=== PATIENT | female | born 1945 | race Caucasian/White ===

== ENCOUNTER 2019-12-08 11:46 | Outpatient (CLI) | payer MEDICARE, SELFPAY ==
[2019-12-08 12:47] LABS: Hemoglobin A1C 5.3 % (<5.7)
[2019-12-08 12:50] LABS: Alanine Aminotransferase 24 U/L (4-35); Albumin Level 4.2 g/dL (3.5-5.1); Alkaline Phosphatase 65 U/L (38-126); Anion Gap 5 mmol/L (8-16); Aspartate Amino Transferase 35 U/L (14-36); Bilirubin,Total 0.7 mg/dL (0.2-1.3); Blood Urea Nitrogen 25 mg/dL (7-17); Calcium 9.7 mg/dL (8.4-10.2); Carbon Dioxide 28 mmol/L (22-30); Chloride 107 mmol/L (98-107); Cholesterol 208 mg/dL (0-200); Estimated Glomerular Filt Rate > 60; Glucose 85 mg/dL (65-105); HDL Direct 52 mg/dL; Potassium 4.2 mmol/L (3.4-5.0); Sodium 140 mmol/L (137-145); Triglycerides 143 mg/dL (<150)
[2019-12-08 13:01] LABS: LDL Cholesterol Direct 121 mg/dL
[2019-12-08 14:04] LABS: Vitamin D 25 Hydroxy 43.7 ng/mL
== END 2019-12-08 11:47 | disposition home or self-care (01) ==
PROVIDERS: PCP Family Medicine; Visit Provider Family Medicine
DX: E78.5 Hyperlipidemia, unspecified (principal); Z79.899 Other long term (current) drug therapy; R73.9 Hyperglycemia, unspecified; E55.9 Vitamin D deficiency, unspecified
CPT/HCPCS: 36415; 80048; 80061; 80076; 82306; 83036

== ENCOUNTER 2020-11-29 11:08 | Outpatient (CLI) | payer MEDICARE, SELFPAY ==
[2020-11-29 12:27] LABS: Alanine Aminotransferase 22 U/L (4-35); Albumin Level 4.7 g/dL (3.5-5.1); Alkaline Phosphatase 68 U/L (38-126); Anion Gap 9 mmol/L (8-16); Aspartate Amino Transferase 36 U/L (14-36); Blood Urea Nitrogen 23 mg/dL (7-17); Calcium 9.7 mg/dL (8.4-10.2); Carbon Dioxide 27 mmol/L (22-30); Chloride 105 mmol/L (98-107); Cholesterol 245 mg/dL (0-200); Estimated Glomerular Filt Rate > 60; Glucose 90 mg/dL (65-110); HDL Direct 58 mg/dL; Potassium 4.4 mmol/L (3.4-5.0); Sodium 141 mmol/L (137-145); Triglycerides 113 mg/dL (<150)
[2020-11-29 12:39] LABS: LDL Cholesterol Direct 131 mg/dL
[2020-11-29 12:53] LABS: Hemoglobin A1C 5.3 % (<5.7)
[2020-11-29 14:26] LABS: Vitamin D 25 Hydroxy 53.6 ng/mL
== END 2020-11-29 11:09 | disposition home or self-care (01) ==
PROVIDERS: PCP Family Medicine; Visit Provider Family Medicine
DX: E78.5 Hyperlipidemia, unspecified (principal); Z79.899 Other long term (current) drug therapy; R73.9 Hyperglycemia, unspecified; E55.9 Vitamin D deficiency, unspecified
CPT/HCPCS: 36415; 80048; 80061; 80076; 82306; 83036

== ENCOUNTER 2021-01-07 14:38 | Outpatient (CLI) | payer MEDICARE, SELFPAY ==
--- NOTE | ~2021-01-07 | DEXA_ITS ---
Bone Density Report Name: Luli Peguero Age: 75 Sex: Female Ethnicity: White Date of : 1945 Indication: osteopenia; monitoring treatment; height loss; prior fracture; postmenopausal Referring Provider: CHALINO, ROSALINDA Salas Study: Bone densitometry was performed. Exam Date: January 07, 2021 Accession number: [id number] Bone Density: Region BMD T-score Z-score Classification AP Spine (L1-L4) 0.883 -1.5 1.0 Osteopenia Femoral Neck (Left) 0.560 -2.6 -0.4 Osteoporosis Total Hip (Left) 0.693 -2.0 -0.1 Osteopenia Total Hip Bilateral Avg 0.721 -1.8 0.1 Osteopenia Femoral Neck (Right) 0.681 -1.5 0.7 Osteopenia Total Hip (Right) 0.748 -1.6 0.3 Osteopenia World Health Organization criteria for BMD impression classify patients as: Normal (T-score at or above -1.0), Osteopenia (T-score between -1.0 and -2.5), or Osteoporosis (T-score at or below -2.5). 10-year Fracture Risk: FRAX not reported because: Some T-score for Spine Total or Hip Total or Femoral Neck at or below -2.5 Treated for osteoporosis Previous Exams: Region Exam Age BMD T-score BMD Change BMD Change Date g/cm2 vs Baseline vs Previous AP Spine(L1-L4) 01/07/2021 75 0.883 -1.5 0.051(6.1%)# 0.088(11.0%)* 12/27/2018 73 0.796 -2.3 -0.037(-4.4%)# 0.005(0.6%) 04/17/2015 69 0.791 -2.3 -0.042(-5.0%)# -0.031(-3.8%)# 08/30/2012 66 0.821 -2.1 -0.011(-1.3%)# -0.044(-5.1%)# 01/18/2006 60 0.866 -1.6 0.033(4.0%)* 0.033(4.0%)* 09/04/2003 57 0.832 -2.0 Total Hip(Left) 01/07/2021 75 0.693 -2.0 -0.075(-9.8%)# -0.031(-4.3%)* 12/27/2018 73 0.724 -1.8 -0.044(-5.8%)# 0.015(2.1%) 04/17/2015 69 0.710 -1.9 -0.059(-7.7%)# -0.036(-4.8%)# 08/30/2012 66 0.746 -1.6 -0.023(-3.0%)# -0.018(-2.4%)# 01/18/2006 60 0.764 -1.5 -0.005(-0.6%) -0.005(-0.6%) 09/04/2003 57 0.769 -1.4 Total Hip(Right) 01/07/2021 75 0.748 -1.6 -0.059(-7.3%)# -0.009(-1.2%) 12/27/2018 73 0.757 -1.5 -0.049(-6.1%)# -0.053(-6.5%)* 04/17/2015 69 0.810 -1.1 0.004(0.5%)# -0.050(-5.8%)# 08/30/2012 66 0.860 -0.7 0.054(6.6%)# 0.047(5.7%)# 01/18/2006 60 0.813 -1.1 0.007(0.9%) 0.007(0.9%) 09/04/2003 57 0.806 -1.1 *Denotes significance at 95% confidence level, LSC for AP Spine = 0.022 g/cm2, LSC for Total Hip = 0.027 g/cm2 Clinical Information Provided by Patient: Has had a low trauma fracture Is being treated for osteoporosis Has used the following medications: Fosamax (i.e. alendronat
--- NOTE | ~2021-01-07 | MM_ITS ---
EXAMINATION: MM screening ritesh BI w juan manuel HISTORY: Screening mammogram TECHNIQUE: Craniocaudal and mediolateral oblique 3-D tomosynthesis images were obtained and synthetic 2-D images were generated. CAD analysis was submitted and interpreted. COMPARISON: 12/27/2018, 12/20/2017, 12/02/2016 bilateral digital screening mammogram examinations BREAST PARENCHYMAL COMPOSITION: There are scattered areas of fibroglandular density. FINDINGS: Stable approximately 3.4 mm circumscribed opacity in the upper outer right breast, likely a benign intramammary lymph node. There is no evidence of suspicious mass, calcification, or exchange architect ural distortion to suggest malignancy in either breast. There has been no suspicious interval change. IMPRESSION: 1. No mammographic evidence of malignancy. 2. Recommend routine screening mammography in one year. BI-RADS Category 2: Benign finding(s). Reviewed, dictated and finalized at location A.
== END 2021-01-07 14:39 | disposition home or self-care (01) ==
LOC: ANHIMG 14:39
PROVIDERS: PCP Family Medicine; Visit Provider Family Medicine
DX: Z12.31 Encounter for screening mammogram for malignant neoplasm of breast (principal); Z78.0 Asymptomatic menopausal state; M85.88 Other specified disorders of bone density and structure, other site; M85.852 Other specified disorders of bone density and structure, left thigh; M85.851 Other specified disorders of bone density and structure, right thigh
CPT/HCPCS: 77063; 77067; 77080

== ENCOUNTER 2021-05-05 09:59 | Outpatient (CLI) | payer MEDICARE, SELFPAY ==
[2021-05-05 11:00] LABS: Alanine Aminotransferase 20 U/L (4-35); Albumin Level 4.6 g/dL (3.5-5.1); Alkaline Phosphatase 70 U/L (38-126); Anion Gap 6 mmol/L (8-16); Aspartate Amino Transferase 31 U/L (14-36); Blood Urea Nitrogen 34 mg/dL (7-17); Calcium 9.3 mg/dL (8.4-10.2); Carbon Dioxide 27 mmol/L (22-30); Chloride 108 mmol/L (98-107); Cholesterol 240 mg/dL (0-200); Estimated Glomerular Filt Rate > 60; Glucose 93 mg/dL (65-110); HDL Direct 55 mg/dL; LDL Cholesterol Direct 141 mg/dL; Potassium 4.2 mmol/L (3.4-5.0); Sodium 141 mmol/L (137-145); Triglycerides 76 mg/dL (<150)
[2021-05-05 11:14] LABS: Vitamin D 25 Hydroxy 53.7 ng/mL
[2021-05-05 11:34] LABS: Hemoglobin A1C 5.3 % (<5.7)
== END 2021-05-05 10:00 | disposition home or self-care (01) ==
PROVIDERS: PCP Family Medicine; Visit Provider Family Medicine
DX: Z51.81 Encounter for therapeutic drug level monitoring (principal); Z79.899 Other long term (current) drug therapy; R73.9 Hyperglycemia, unspecified; E55.9 Vitamin D deficiency, unspecified
CPT/HCPCS: 36415; 80048; 80061; 80076; 82306; 83036

== ENCOUNTER 2021-05-21 11:21 | Outpatient (CLI) | payer MEDICARE, SELFPAY ==
--- NOTE | ~2021-05-21 | US_ITS ---
EXAMINATION: US soft tissue head and neck EXAM DATE: 05/21/2021 12:27 INDICATION: Localized enlarged lymph nodes . Left-sided neck feels different than right. TECHNIQUE: Multiple grayscale and Doppler images of the neck symptomatic region were obtained (by a t echnologist who performed the scan) and subsequently reviewed. There is no prior study for compariso n. FINDINGS: Scanning in the area of patient's concern demonstrates several small internal jugular chain lymph nod es bilaterally. No pathologically enlarged lymph nodes. No other sonographic abnormality. IMPRESSION: 1. Unremarkable ultrasound exam. Reviewed, dictated and finalized at location A. FISHER
== END 2021-05-21 11:22 | disposition home or self-care (01) ==
LOC: ANHIMG 11:25
PROVIDERS: PCP Family Medicine; Visit Provider Family Medicine
DX: R59.0 Localized enlarged lymph nodes (principal)
CPT/HCPCS: 76536

== ENCOUNTER 2021-10-02 11:49 | Outpatient (CLI) | payer MEDICARE, SELFPAY ==
--- NOTE | ~2021-10-02 | XR_ITS ---
XR foot LT min 3V DATE: 10/02/2021 12:14 INDICATION: Left foot pain. Dorsal distal metatarsal pain. TECHNIQUE: 4 views COMPARISON: 11/24/2017 left foot FINDINGS: Mild plantar and slight posterior calcaneal enthesopathy. Mild osteoarthritis at the first metatarsophalangeal joint. There is osteoarthritic change at the tar sometatarsal and some interphalangeal joints. No fracture, dislocation, periosteal reaction or bone destruction is detected. IMPRESSION: Polyarticular osteoarthritis Mild plantar and slight posterior calcaneal enthesopathy Reviewed, dictated and finalized at location B.
--- NOTE | ~2021-10-02 | XR_ITS ---
XR ankle LT min 3V DATE: 10/02/2021 12:13 INDICATION: Left ankle and foot pain TECHNIQUE: 4 views of left ankle COMPARISON: None FINDINGS: Mild plantar and slight posterior calcaneal enthesopathy without associated erosive change or periostitis. No fracture or dislocation of the ankle or disruption of the ankle mortise. No periosteal reaction or bone destruction. IMPRESSION: No significant abnormality of the left ankle Slight posterior and mild plantar calcaneal enthesopathy Reviewed, dictated and finalized at location B.
== END 2021-10-02 11:50 | disposition home or self-care (01) ==
PROVIDERS: PCP Family Medicine; Visit Provider Family Medicine
DX: M79.672 Pain in left foot (principal); M19.072 Primary osteoarthritis, left ankle and foot; M77.32 Calcaneal spur, left foot
CPT/HCPCS: 73610; 73630

== ENCOUNTER 2022-01-21 09:45 | Outpatient (CLI) | payer MEDICARE, SELFPAY ==
--- NOTE | ~2022-01-21 | MM_ITS ---
EXAMINATION: MM screening ritesh BI w juan manuel HISTORY: Screening mammogram TECHNIQUE: Craniocaudal and mediolateral oblique 3-D tomosynthesis images were obtained and synthetic 2-D images were generated. CAD analysis was submitted and interpreted. COMPARISON: 01/07/2021, 12/27/2018, 12/20/2017 bilateral screening mammogram examinations BREAST PARENCHYMAL COMPOSITION: There are scattered areas of fibroglandular density. FINDINGS: Stable 3 mm probable intramammary lymph node, upper outer right breast. There is no evidenc e of suspicious mass, calcification, or architectural distortion to suggest malignancy in either [address]. There has been no suspicious interval change. IMPRESSION: 1. No mammographic evidence of malignancy. 2. Recommend routine screening mammography in one year. BI-RADS Category 2: Benign finding(s). Reviewed, dictated and finalized at location A. 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
== END 2022-01-21 09:46 | disposition home or self-care (01) ==
PROVIDERS: PCP Family Medicine; Visit Provider Family Medicine
DX: Z12.31 Encounter for screening mammogram for malignant neoplasm of breast (principal)
CPT/HCPCS: 77063; 77067

== ENCOUNTER 2022-06-08 13:12 | Outpatient (CLI) | payer MEDICARE, SELFPAY ==
[2022-06-08 13:53] LABS: Basophils Absolute Auto 0.1 K/mm3 (0.0-0.1); Basophils Percent Auto 1.2 % (0.2-1.2); Eosinophils Absolute Auto 0.2 K/mm3 (0-0.3); Eosinophils Percent Auto 2.6 % (0-4.4); Hematocrit 35.6 % (37.0-47.0); Hemoglobin 11.8 g/dL (12.0-15.0); Immature Granulocyte Absolute 0.02 K/mm3 (0.00-0.031); Immature Granulocyte Percent A 0.3 % (0-0.5); Lymphocytes Absolute Auto 1.68 K/mm3 (0.9-3.2); Lymphocytes Percent Auto 25.5 % (18.3-44.2); Mean Corpuscular HGB Conc 33.1 g/dl (32-36); Mean Corpuscular Hemoglobin 31.1 pg (26-34); Mean Corpuscular Volume 93.9 fl (80-100); Mean Platelet Volume 10.2 fl (7.4-10.4); Monocytes Absolute Auto 0.4 K/mm3 (0.1-0.6); Monocytes Percent Auto 6.7 % (2.6-8.5); Neutrophils Absolute Auto 4.2 K/mm3 (1.3-6.7); Neutrophils Percent Auto 63.7 % (45.5-73.1); Platelet Count Result 254 k/mm3 (150-375); Red Blood Count 3.79 M/mm3 (4.2-5.4); Red Cell Distribution Width 13.2 % (11.5-14.5); White Blood Count 6.6 K/mm3 (4.5-10.0)
[2022-06-08 14:08] LABS: Alanine Aminotransferase 21 U/L (6-35); Albumin Level 4.5 g/dL (3.5-5.1); Alkaline Phosphatase 66 U/L (38-126); Anion Gap 1 mmol/L (8-16); Aspartate Amino Transferase 32 U/L (14-36); Bilirubin,Total 0.9 mg/dL (0.2-1.3); Blood Urea Nitrogen 20 mg/dL (7-17); Calcium 9.4 mg/dL (8.4-10.2); Carbon Dioxide 32 mmol/L (22-30); Chloride 105 mmol/L (98-107); Cholesterol 219 mg/dL (0-200); Estimated Glomerular Filt Rate > 60; Glucose 87 mg/dL (65-110); HDL Direct 56 mg/dL; Potassium 3.9 mmol/L (3.4-5.0); Sodium 138 mmol/L (137-145); Triglycerides 121 mg/dL (<150)
[2022-06-08 14:14] LABS: Hemoglobin A1C 5.2 % (<5.7)
[2022-06-08 14:19] LABS: LDL Cholesterol Direct 116 mg/dL
[2022-06-08 14:44] LABS: Vitamin D 25 Hydroxy 39.1 ng/mL
== END 2022-06-08 13:13 | disposition home or self-care (01) ==
PROVIDERS: PCP Family Medicine; Visit Provider Family Medicine
DX: E55.9 Vitamin D deficiency, unspecified (principal); E78.5 Hyperlipidemia, unspecified; Z79.899 Other long term (current) drug therapy; R73.9 Hyperglycemia, unspecified
CPT/HCPCS: 36415; 80048; 80061; 80076; 82306; 83036; 85025

== ENCOUNTER 2023-08-05 07:55 | Outpatient (CLI) | payer MEDICARE, SELFPAY ==
--- NOTE | ~2023-08-05 | DEXA_ITS ---
Bone Density Report Name: EDWARD MCGOWAN Age: 77 Sex: Female Ethnicity: White Date of : 1945 Indication: osteopenia; height loss; Referring Provider: CHALINO, ROSALINDA Salas Study: Bone densitometry was performed. Exam Date: August 05, 2023 Accession number: [id number] Bone Density: Region BMD T-score Z-score Classification AP Spine(L1-L4) 0.855 -1.7 0.9 Osteopenia Femoral Neck (Left) 0.613 -2.1 0.2 Osteopenia Total Hip (Left) 0.752 -1.6 0.5 Osteopenia Femoral Neck (Right) 0.650 -1.8 0.5 Osteopenia Total Hip (Right) 0.795 -1.2 0.8 Osteopenia Total Hip Mean 0.774 -1.4 0.7 Osteopenia World Health Organization criteria for BMD impression classify patients as: Normal (T-score at or above -1.0), Osteopenia (T-score between -1.0 and -2.5), or Osteoporosis (T-score at or below -2.5). 10-year Fracture Risk(1): Major Osteoporotic Fracture 15% Hip Fracture 4.4% Reported Risk Factors: [place] (), Neck BMD=0.613, BMI=22.4 (1) FRAX(R) Version 3.08. Fracture probability calculated for an untreated patient. Fracture probability may be lower if the patient has received treatment. Previous Exams: Region Exam Age BMD T-score BMD Change BMD Change Date g/cm2 vs Baseline vs Previous AP Spine (L1-L4) 08/05/2023 77 0.855 -1.7 0.034 (4.1%)# -0.028 (-3.2%) 01/07/2021 75 0.883 -1.5 0.062 (7.5%)# 0.088 (11.0%)* 12/27/2018 73 0.796 -2.3 -0.026 (-3.1%) 0.005 (0.6%) 04/17/2015 69 0.791 -2.3 -0.031 (-3.8%) -0.031 (-3.8%) 08/30/2012 66 0.821 -2.1 Total Hip(Left) 08/05/2023 77 0.752 -1.6 0.007 (0.9%)# 0.059 (8.5%)* 01/07/2021 75 0.693 -2.0 -0.052 (-7.0%) -0.031 (-4.3%) 12/27/2018 73 0.724 -1.8 -0.021 (-2.8%) 0.015 (2.1%) 04/17/2015 69 0.710 -1.9 -0.036 (-4.8%) -0.036 (-4.8%) 08/30/2012 66 0.746 -1.6 Total Hip(Right) 08/05/2023 77 0.795 -1.2 -0.065 (-7.5%) 0.048 (6.4%)* 01/07/2021 75 0.748 -1.6 -0.112 (-13.1% -0.009 (-1.2%) 12/27/2018 73 0.757 -1.5 -0.103 (-12.0% -0.053 (-6.5%) 04/17/2015 69 0.810 -1.1 -0.050 (-5.8%) -0.050 (-5.8%) 08/30/2012 66 0.860 -0.7 *Denotes significance at 95% confidence level, LSC for AP Spine = 0.022 g/cm2, LSC for Total Hip = 0.027 g/cm2 # Denotes dissimilar scan types or analysis methods Clinical Information Provided by Patient: Has used the following medications: Fosamax (i.e. alendronate), Vitamin D, Calcium Patient maximum height was 62.5 Drinks caffeinated beverages Onset of menses at age 9 Number of children 1
--- NOTE | ~2023-08-05 | MM_ITS ---
EXAMINATION: MM screening ritesh BI w juan manuel HISTORY: Screening TECHNIQUE: Craniocaudal and mediolateral oblique 3-D tomosynthesis images were obtained and synthetic 2-D images were generated. CAD analysis was submitted and interpreted. COMPARISON: Comparison to multiple prior studies sequentially, with oldest reviewed study dated 11/27. BREAST PARENCHYMAL COMPOSITION: Not dense: There are scattered areas of fibroglandular density. FINDINGS: There is no evidence of suspicious mass, calcification, or architectural distortion to sugg est malignancy in either breast. There has been no suspicious interval change. IMPRESSION: 1. No mammographic evidence of malignancy. 2. Recommend routine screening mammography in one year. BI-RADS Category 1: Negative Reviewed, dictated and finalized at location A.
== END 2023-08-05 07:56 | disposition home or self-care (01) ==
PROVIDERS: PCP Family Medicine; Visit Provider Family Medicine
DX: Z12.31 Encounter for screening mammogram for malignant neoplasm of breast (principal); M85.89 Other specified disorders of bone density and structure, multiple sites; Z78.0 Asymptomatic menopausal state
CPT/HCPCS: 77063; 77067; 77080

== ENCOUNTER 2024-02-05 12:19 | Outpatient (CLI) | payer MEDICARE, SELFPAY ==
--- NOTE | ~2024-02-05 | CT_ITS ---
EXAMINATION: CT shoulder LT wo con DATE: 02/05/2024 13:07 INDICATION: Left shoulder pain. TECHNIQUE: Computed tomography (CT) of the left shoulder was performed without intravenous contrast. Automated exposure control and iterative reconstruction technique were employed. The dose-length prod uct was 75.10 mGy-cm. COMPARISON: None FINDINGS: Bone alignment is normal. No fracture. There is moderate osteoarthritis of glenohumeral lissette nt and acromioclavicular joint. There is no asymmetric fatty atrophy of the rotator cuff muscle phan es. IMPRESSION: 1. Polyarticular osteoarthritis. Reviewed, dictated and finalized at location A. ET MARKER
== END 2024-02-05 12:20 | disposition home or self-care (01) ==
PROVIDERS: PCP Family Medicine; Visit Provider Orthopaedic Surgery Hand Surgery
DX: M19.012 Primary osteoarthritis, left shoulder (principal)
CPT/HCPCS: 73200

== ENCOUNTER 2025-03-14 09:58 | Outpatient (CLI) | payer MEDICARE, SELFPAY ==
--- NOTE | ~2025-03-14 | XR_ITS ---
EXAMINATION: XR hand RT min 3V DATE: 03/14/2025 10:25 INDICATION: Right hand pain TECHNIQUE: Posteroanterior, oblique and lateral views of the right hand were obtained. COMPARISON: None. FINDINGS: Likely first carpal metacarpal suspension arthroplasty with resection of the trapezium. Bone alignment is otherwise normal. No fracture. Severe osteoarthritis at the second, third and fifth distal interphalangeal joints with central erosions at the base of the distal phalanges with gullwing configuration consistent with erosive osteoarthritis. Additional moderate osteoarthritis at the remaining interphalangeal joints and the second-fifth digits and at the third metacarpophalangeal joint. Mild osteoarthritis at the remaining joints in the right hand. Diffuse osteopenia. Soft tissues are unremarkable. IMPRESSION: 1. 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 2. First carpal metacarpal suspension arthroplasty with resection of the trapezium. Reviewed, dictated and finalized at location A. 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 2. First carpal metacarpal suspension arthroplasty with resection of the trapez ium.
--- NOTE | ~2025-03-14 | XR_ITS ---
EXAMINATION: XR shoulder RT min 2V, XR shoulder LT min 2V DATE: 03/14/2025 10:25 INDICATION: Bilateral shoulder pain TECHNIQUE: 1. AP internally and externally rotated, AP oblique externally rotated and axillary views of the right shoulder were obtained. 2. AP internally and externally rotated, AP oblique externally rotated and axillary views of the left shoulder were obtained. COMPARISON: 03/22/2018 FINDINGS: Right shoulder: Normal alignment. No fracture.Interval progression of now severe joint space narrowing at the right glenohumeral joint. Mild osteoarthritis at the acromioclavicular joint. Visualized portion of the lungs are clear. Soft tissues are unremarkable. Left shoulder: Alignment is normal. No fracture. Moderate osteoarthritis at the glenohumeral and acromioclavicular joints. Visualized portion of the lungs are clear. Soft tissues are unremarkable. Cardiomediastinal silhouette is normal. Moderate thoracic spondylosis. 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 Reviewed, dictated and finalized at location A. [employer] IMPRESSION: Polyarticular osteoarthritis, severe at the right and moderate at the left rama ohumeral joints and moderate at the left and mild at the right acromioclavicula r joints.
--- OUTSIDE RECORDS SUMMARY | 2025-03-14 10:19 | XMS_ITS | Encounter Summary ---
Author Organization [facility] Healthcare Address [address] [place] [id number] Care Team Providers Care Oiler Bander Name Role Phone Saul Agudelo DO Primary Care Provider Reason for Visit * Reason Onset Date Comments WANDA Questions 02/14/2025 Encounter Details Date Type Department Care Team ([facility] st Contact Info) Description 02/14/2025 Telephone [facility] Medical Group Primary Care [address] [phone] Saul Agudelo DO [address] [phone] WANDA Questions Social History Tobacco Use Types Packs/Day Years Used Date Smoking Tobacco: Never Smokeless Tobacco: Never Alcohol Use Standard Drinks/Week Comments Yes 0 (1 standard drink = 0.6 oz pur e alcohol) PHQ-2 Answer Date Recorded PHQ-2 Total Score (If total score is 3 or more points, staff should administer the PHQ-9) 4 11/13/2024 PHQ-9 Answer Date Recorded PHQ-9 Total Score 6 11/13/2024 Humiliation, Afraid, Rape, and Kick questionnair e Answer Date Recorded Within the last year, have y ou been afraid of your partner or ex-partner? No 02/10/2025 Within the last year, have y ou been humiliated or emotionally abused in other ways by your partner or ex-partner? No Within the last year, have y ou been kicked, hit, slapped, or otherwise physically hurt by your partner or ex-partner? No 02/10/2025 Within the last year, have y ou been raped or forced to have any kind of sexual activity by your partner or ex-partner? No 02/10/2025 Social Connection and Isolation Panel Answer Date Recorded In a typical week, how many times do you talk on the phone with family, friends, or neighbors? More than three times a week 02/10/2025 How often do you get togethe r with friends or relatives? More than three times a week 02/10/2025 How often do you attend chur or caodaism services? More than 4 times per year 02/10/2025 Do you belong to any clubs o r organizations such as roman catholic groups, unions, fraternal or athletic groups, or school groups? No 02/10/2025 How often do you attend meet ings of the clubs or organizations you belong to? Never 02/10/2025 Are you , , di vorced, , never , or living with a partner? 02/10/2025 AUDIT-C Answer Date Recorded Q1: How often do you have a drink containing alc ohol? Monthly or less 02/10/2025 Q2: How many drinks containi ng alcohol do you have on a typical day when you are drinking? 1 or 2 02/10/2025 Q3: How often do you have si x or more drinks on one occasion? Never 02/10/2025 Overall Financial Resource Strain (CARDIA) Answe r Date Recorded How hard is it for you to pa y for the very basics like food, housing, medical care, and heating? Not hard at all 02/10/2025 [facility] [place] of Occupat ional Health - Occupational Stress Questionnaire Answer Date Recorded Do you feel stress - tense, restless, nervous, or anxious, or unable to sleep at night because your mind is troubled all the time - these days? Not at all 02/10/2025 Exercise Vital Sign Answer Date Recorde d On average, how many days pe r week do you engage in moderate to strenuous exercise (like a brisk walk)? 7 days 02/10/2025 On average, how many minutes do you engage in exercise at this level? 30 min 02/10/2025 Hunger Vital Sign Answer Date Recorded Within the past 12 months, y ou worried that your food would run out before you got the money to buy more. Never true 02/11/20 25 Within the past 12 months, t he food you bought just didn't last and you didn't have money to get more. Never true 02/10/2025 PRAPARE - Transportation Answer Date Re corded In the past 12 months, has l ack of transportation kept you from medical appointments or from getting medications? No 01/14 In the past 12 months, has l ack of transportation kept you from meetings, work, or from getting things needed for daily living? No 02/10/2025 Housing Stability Vital Sign Answer Ovidio e Recorded In the last 12 months, was t here a time when you were not able to pay the mortgage or rent on time? No 02/10/2025 In the past 12 months, how m any times have you moved where you were living? 0 02/10/2025 At any time in the past 12 m [facility], were you homeless or living in a assisted (including now)? No 02/10/2025 [facility] Utilities Answer Date Recorded In the past 12 months has th e electric, gas, oil, or water company threatened to shut off services in your home? No 02/10/2025 Personal Safety Answer Date Recorded Have you ever been in or are you currently in a harmful physical or emotional relationship or is someone making you feel afraid or unsafe? 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 No Will patient be transferred to another inpatient facility (e.g. intermediate, inpatient rehab, etc.)? No The patient was not discharged at the time of the call. Patient will need to be contacted after discharge to complete remaining questions. Date Admitted: 02/10/25 Tentative Discharge Date: 12/4 Facility Admitted To: [facility] Date of WANDA Appointment: 02/19/25 Additional Comments: None Does message need to be routed? 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
--- OUTSIDE RECORDS SUMMARY | 2025-03-14 10:19 | XMS_ITS | Clinical Summary ---
Author Organization [facility] Address [address] [place] [phone] Care Team Providers Care Percussion Instructor Name Role Phone Saul Agudelo DO Primary Care Provider Allergies Active Allergy Reactions Criticality Noted Date Comments Alum-Mag Hydroxide-Simeth Hives Medium 11/10/2023 Aluminum Hydroxide Hives Medium 11/05/2017 Calcium Carbonate Unknown 11/05/2017 Magnesium Unknown 11/05/2017 Magnesium Hydroxide Hives Medium 11/05/2017 Mylanta Ar Hives Medium 11/10/2023 Simethicone Unknown 11/05/2017 Venom-Honey Bee Other (See comments) Low 11/10/2023 Medications cholecalciferol (VITAMIN D-3) 1,000 unit capsule Take 1 capsule every day by oral route. 5 Active Ca carb-D3-mag ir-dca-bjjc-Zn (Caltrate-D3 Plus Minerals) 300 mg-20 mcg- 25 mg-0.5 mg tablet Take by mouth 2 (two) times a day 2 Active ipratropium (ATROVENT) 42 mcg (0.06 %) nasal spray Administer 2 sprays into each nostril 3 (three) times a day 15 mL [address] (VOLTAREN) 75 mg EC tablet TAKE 1 TABLET BY MOUTH TWICE DAILY 180 tablet 3 5 Active ezetimibe (ZETIA) 10 mg tablet TAKE 1 TABLET BY MOUTH DAILY 90 tablet 1 5 Active vit C,Q-Mw-wwwwt-natan tein-zeaxan 250-90-40-1 mg capsule Take 1 capsule by mouth 2 (two) times a day Active alendronate (FOSAMAX) 70 mg tablet TAKE 1 TABLET BY MOUTH WEEKLY IN THE MORNING WITH 8 OZ OF PLAIN WATER 30 MINUTES BEFORE FIRST FOOD, DRINK OR MEDS. STAY UPRIGHT FOR 30 MINS 12 tablet 3 5 Active acetaminophen (TYLENOL) 325 mg tablet Take 2 tablets (650 mg total) by mouth every 6 (six) hours as needed for pain Active ferrous sulfate 325 mg (65 mg of elemental iron) tabletIndicatio ns:Iron Deficiency Anemia Take 1 tablet (325 mg total) by mouth daily with breakfast 30 tablet 2 5 02/29/20 25 Additional Information Patient taking differently:65 mg of elemental iron oralEvery other day, Every other day with breakfast, Indications: Iron Deficiency Anemia, Informant: Self, Reported on 02/19/2025 doxycycline (VIBRAMYCIN) 100 mg capsuleIndicati ons:cellulitis Take 1 tablet/capsule (100 mg total) by mouth 2 (two) times a day for 4 days 8 tablet/capsu le 5 02/21/20 Active Problems Problem Noted Date Diagnosed Date Cellulitis of finger of left hand 02/10/2025 Assessment & Plan (02/15/2025 8:07 AM [employer]): Patient presented with pain, swelling and reddness for 1 week. Unclear etiology at this point: endorses engaging in activities like gardening and using sharp equipment during thanksgiving. Was at OSH and received Vanc-CTX. Afebrile, no leucocytosis. L hand XR: soft tissue swelling, no gas. CRP 11.9>13.5, normal ESR. Considering a typical vs atypical bacterial etiology vs fungal etiology. Herpes less likely given no blisters or puncta. Patient progressively getting better on IV antibiotics. - MRI left hand w/wo contrast on 02/13/2025 showing Left second digit cellulitis, without underlying organizing fluid collection, tenosynovitis or osteomyelitis. - On Cefepime 1000 mg q12h day 6, vancomycin day 6 - Increased vanc dose to 1250 mg on 02/14 - Monitor for clinical improvement. - Watch Vanc trough levels to monitor toxicity - Ortho following: - Non-operative management. Signed off - Manske elevation w/ pillows Assessment & Plan (02/14/2025 1:49 PM [employer]): Patient presented with pain, swelling and reddness for 1 week. Unclear etiology at this point: endorses engaging in activities like gardening and using sharp equipment during thanksgiving. Was at OSH and received Vanc-CTX. Afebrile, no leucocytosis. L hand XR: soft tissue swelling, no gas. CRP 11.9>13.5, normal ESR. Considering a typical vs atypical bacterial etiology vs fungal etiology. Herpes less likely given no blisters or puncta. Patient progressively getting better on IV antibiotics. - MRI left hand w/wo contrast on 02/13/2025 showing Left second digit cellulitis, without underlying organizing fluid collection, tenosynovitis or osteomyelitis. - On Cefepime 1000 mg q12h day 5, vancomycin day 5 - Increased vanc dose to 1250 mg on 02/14 - Monitor for clinical improvement. - Watch Vanc trough levels to monitor toxicity - Ortho following: - Non-operative management. Signed off - Manske elevation w/ pillows Assessment & Plan (02/13/2025 1:53 PM [employer]): Patient presented with pain, swelling and reddness for 1 week. Unclear etiology at this point: endorses engaging in activities like gardening and using sharp equipment during thanksgiving. Was at OSH and received Vanc-CTX. Afebrile, no leucocytosis. L hand XR: soft tissue swelling, no gas. CRP 11.9>13.5, normal ESR. Considering a typical vs atypical bacterial etiology vs fungal etiology. Herpes less likely given no blisters or puncta. - Ortho following: - Non-operative management for now - Pending MRI fingers to rule out fluid collection - Manske elevation w/ pillows - On Cefepime 1000 mg q12h day 4, vancomycin day 4 - Monitor for clinical improvement. - Watch Vanc trough levels to monitor toxicity. Assessment & Plan (02/12/2025 12:50 PM [employer]): Pain, swelling and reddness for 1 week Was at OSH received Vanc-CTX Afebrile, no leucocytosis CRP 11.9, normal ESR L hand XR: soft tissue swelling, no gas. S/p vanc CTX in AD early AM 02/10 Ortho consulted and recommended likely non-op exam Plan IV Vanc and Cefe Manske elevation w/ pillows Ortho following, appreciate recs, non-op treatment for now. NPO midnight and reassess tomorrow Monitor for clinical improvement. Watch Vanc trough levels to monitor toxicity. Assessment & Plan (02/11/2025 12:25 PM [employer]): Pain, swelling and reddness for 1 week Was at OSH received Vanc-CTX Afebrile, no leucocytosis CRP 11.9, normal ESR L hand XR: soft tissue swelling, no gas. S/p vanc CTX in AD early AM 02/10 Ortho consulted and recommended likely non-op exam Plan IV Vanc and Cefe Manske elevation w/ pillows Ortho following, appreciate recs, non-op treatment. Monitor for clinical improvement. -Watch Vanc trough levels to monitor toxicity. Assessment & Plan (02/10/2025 11:45 AM [employer]): Pain, swelling and reddness for 1 week Was at OSH received Vanc-CTX Afebrile, no leucocytosis CRP 11.9, normal ESR L hand XR: soft tissue swelling, no gas. S/p vanc CTX in AD early AM 02/10 Ortho consulted and recommended likely non-op exam Plan IV Vanc-Cefe Manske elevation w/ pillows NPO midnight for trended exam by ortho Ortho following, appreciate recs Monitor for clinical improvement. Neuropathy 11/20/2024 Overview (11/20/2024): feet with R>L but still mild - monitor Rhinorrhea 12/07/2023 Assessment & Plan (12/07/2023 8:44 PM CDT): I recommended that she try using Atrovent nasal spray may help the runny nose. She would like to go ahead and pursue that. sHe will follow up if things worsen. Sensorineural hearing loss (SNHL) of both ears 0 12/07/2023 Assessment & Plan (12/07/2023 8:44 PM CDT): She does have pretty significant bilateral sensorineural hearing loss and I think she would benefit from hearing aids. We talked quite a bit about that. She will consider that option. Tinnitus of left ear 12/07/2023 Assessment & Plan (12/07/2023 8:45 PM CDT): I think the ringing could be due to her hearing loss which is somewhat asymmetric. I talked with the patient about tinnitus. Typically it is due to hearing loss but there are other potential reasons for it. It can occur due to cervical strain or TMJ disorder. Also potentially due to tumors which are usually benign. Unfortunately there is no widely accepted or successful treatment for it. There are a lot of ytve-qyo-[id number] remedies which generally do not help and I really do not recommend any of them. Hearing aids could very well help with the ringing I explained. Routine physical examination 11/10/2023 Overview (11/20/2024): New: November 10, 2023 November 20, 2024 Vitamin D deficiency 11/10/2023 Overview (11/10/2023): Daily replacement Continue same medications Assessment & Plan (11/10/2023 11:58 AM CDT): Recheck lab Osteopenia of multiple sites 11/10/2023 Overview (11/10/2023): Osteopenia noted on DEXA July 2023 She is on Fosamax She takes daily calcium, vitamin-D, and is still active Continue same medications Dyslipidemia 11/10/2023 Overview (11/10/2023): Chronic, stable condition on Zetia Continue same medications Assessment & Plan (11/10/2023 11:59 AM CDT): Update lab Decreased hearing of both ears 11/10/2023 Assessment & Plan (11/10/2023 12:00 PM CDT): Referral to audiology Encounters Date Type Department Care Team Description 02/19/2025 10:00 AM [employer] Office Visit [facility] [address] [place] [phone] Saul Agudelo DO Cellulitis of finger of left hand (Primary Dx) 02/14/2025 Telephone [facility] [address] [place] [phone] Saul Agudelo DO WANDA Questions 02/10/2025 2:49 AM [employer] - 02/15/2025 11:10 AM [facility] Hospital Encounter [address] [phone] Eamon Ochoa Jr., MD Bonner, Johnathon Sheriff, MD Mei, Lambert Villar, MD Minor, Aracelis Thacker, MD Lindsay, Art Alcazar, MD Marquis, Amanda Lopez MD Cellulitis of finger of left hand (Primary Dx); Finger pain, left Discharge Disposition: Discharge to home or self care 02/09/2025 10:11 PM [employer] - 02/10/2025 1:22 AM [facility] Emergency [facility] Emergency Department [address] [place] [address] Alon Batista Jr., MD Cellulitis of left index finger (Primary Dx) Discharge Disposition: Discharge to a short term hospital for IP 01/22/2025 Telephone [facility] [address] [place] [phone] Saul Agudelo DO Referral Request 01/11/2025 10:05 AM CDT Lab [facility] Office Building [address] [place] [phone] Low hemoglobin 01/11/2025 Results Follow-Up [facility] [address] [place] [phone] Saul Agudelo DO Iron profile w/ IBC, CBC with auto differential, Differential, auto 12/14/2024 12:57 PM CDT - 12/14/2024 11:59 PM CDT Hospital Encounter [facility] Breast Imaging [address] [place] [phone] Encounter for screening mammogram for malignant neoplasm of breast Discharge Disposition: Discharge to home or self care 12/14/2024 11:40 AM CDT Lab [facility] Building 1 Lab [address] [place] [address] Low hemoglobin 12/14/2024 Results Follow-Up [facility] [address] [facility] [address] [place] [phone] Saul Agudelo, CBC with auto differential, Differential, auto from Last 3 Months Immunizations Immunization Administration Dates Next Due Influenza, Quad, Adjuvantate d, Intramuscular 03/02/2023 Influenza, Quadrivalent, Hig h Dose, Preservative Free, Intrr 02/16/2023,12/15/2021,12/06/2020,01/07 Influenza, Trivalent, High D ose, Split, Preservative Free, Intramuscular 02/15/2025,12/10/2023,02/03/2019,11/24,01/14/2017,01/09/2016,01/03/2015 ,12/13/2014,01/24/2014 Influenza, Trivalent, IM (MDV) 02/16/2013 Influenza, Unspecified 11/20/2024(Deferred: Pricilla ent Refused) Moderna SARS-CoV-2 Monovalen t Vaccination (12+ YRS) 05/09/2020 Pneumococcal Conjugate PCV 13 11/12/2021 Pneumococcal Polysaccharide PPV23 02/19/2010 RSV, Bivalent, Protein Subun it Rsvpref, Diluent (Abrysvo) 02/23/2023 Tdap 02/09/2025 ZOSTER LIVE 02/20/2011 ZOSTER Recombinant 03/02/2023,06/24/2022 Surgical History Surgery Date Site/Laterality Comments SECTION COLONOSCOPY THUMB SURGERY Left CATARACT EXTRACTION Bilateral KNEE SURGERY Bilateral JOINT REPLACEMENT March 2014 THUMB SURGERY Right Medical History Medical History Date Comments Cataracts, bilateral Tinnitus Incontinence H/O cold sores Arthritis ?? Osteoporosis ?? Family History Medical History Relation Name Comments Heart attack Father Heart disease Father Hypertension Father Diabetes Mother Shannon David Heart disease Mother Shannon Hernandez Vision loss Mother Shannon Hernandez Cancer Sister Ovarian Relation Name Status Comments Father Mother Shannon Hernandez Sister Social History Tobacco Use Types Packs/Day Years Used Date Smoking Tobacco: Never Smokeless Tobacco: Never Tobacco Cessation:Counseling Given: Not Answered Alcohol Use Standard Drinks/Week Comments Yes 0 [...] How often do you attend chur or islam services? More than 4 times per year 02/10/2025 Do you belong to any clubs o r organizations such as christian groups, unions, fraternal or athletic groups, or [...] and heating? Not hard at all 02/10/2025 [facility] - Occupational Stress Questionnaire Answer Date Recorded [...] any time in the past 12 m onths, were you homeless or living in a long-term (including now)? No 02/10/2025 [facility] Utilities Answer Date Recorded In the [...] on file Legal Sex Female 2:57 AM [employer] Gender Identity Not on file Sexual Orientation Not on file Obstetrics History Para Term AB IAB SAB Ectopic Multiple Livin g Live Births 1 1 Date Outcome GA Total Labor Labor/2nd/3rd Weight Sex Type Anes PTL Carlota A1 A5 Name Clin Last Filed Vital Signs Vital Sign Reading Time Taken Comments Blood Pressure 120/80 02/19/2025 10:05 AM [employer] Pulse 63 02/19/2025 10:05 AM [employer] Temperature 36.6 C (97.8 F) 02/19/2025 10:05 AM [employer] Respiratory Rate 18 02/19/2025 10:0 5 AM [employer] Oxygen Saturation 98% 02/19/2025 10: 05 AM [employer] Inhaled Oxygen Concentration - - Weight 53.4 kg (117 lb 12.8 oz) 025 10:05 AM [employer] Height 149.9 cm (4' 11) 02/19/2025 10: 05 AM [employer] Body Mass Index 23.79 02/19/2025 10:05 AM [employer] Plan of Treatment Health Maintenance Due Date Last Done Comments Osteoporosis Screening-Bone Density Scan 1945 Covid-19 Vaccine (2024-04 6 season) 2024 12/10/2023, 02/23/2023, 12/15/2021, Additional history exists Depression Screening 11/20/2025 11/20/2024, 11/20/2024, 11/10/2023 Well Visit 65+ 11/20/2025 11/20/2024, 11/10/2023 Fall Risk Assessment 02/15/2026 02/15/2025, 11/20/2024, 11/10/2023 DTaP/Tdap/Td Vaccine (2 - Td or Tdap) 02/09/2035 02/09/2025 Pneumococcal vaccine 65+ Completed 11/12/2021, 10/2009 Zoster Vaccine Completed 03/02/2023, 06/13, 02/20/2011 Hepatitis B Screening Completed 11/10/2023 Influenza Vaccine Completed 02/15/2025, , 03/02/2023, Additional history exists Procedures Procedure Name Priority Date/Time Associated Diagnosis Comments EGFR Routine 02/15/2025 5:28 AM [employer] BASIC METABOLIC PANEL Routine 02/15/2025 5:28 AM [employer] CBC WITHOUT DIFFERENTIAL Routine 02/15/2025 5:28 AM [employer] VANCOMYCIN LEVEL TROUGH Timed 02/14/2025 8:03 AM [employer] EGFR Routine 02/14/2025 5:42 AM [employer] BASIC METABOLIC PANEL Routine 02/14/2025 5:42 AM [employer] CBC WITHOUT DIFFERENTIAL Routine 02/14/2025 5:42 AM [employer] MRI HAND LEFT W WO CONTRAST IP Routine 02/13/2025 7:53 PM [employer] EGFR Routine 02/13/2025 6:50 AM [employer] BASIC METABOLIC PANEL Routine 02/13/2025 6:50 AM [employer] CBC WITHOUT DIFFERENTIAL Routine 02/13/2025 6:50 AM [employer] CRP (ACUTE PHASE) STAT 02/12/2025 6:2 0 AM [employer] ERYTHROCYTE SEDIMENTATION RATE STAT 02/12/2025 6:20 AM [employer] EGFR Routine 02/11/2025 5:23 AM [employer] VANCOMYCIN LEVEL RANDOM Routine 02/11/2025 5:23 AM [employer] DIFFERENTIAL AUTO Routine 02/11/2025 5:2 3 AM [employer] CBC WITH AUTO DIFFERENTIAL Routine 02/11/2025 5:23 AM [employer] COMPREHENSIVE METABOLIC PANEL Routine 02/11/2025 5:23 AM [employer] EGFR STAT 02/10/2025 6:49 AM [employer] BASIC METABOLIC PANEL STAT 02/10/2025 6:49 AM [employer] B CHECK SAMPLE STAT 02/10/2025 4:26 AM [employer] CRP (ACUTE PHASE) STAT 02/10/2025 3:2 8 AM [employer] ERYTHROCYTE SEDIMENTATION RATE STAT 02/10/2025 3:28 AM [employer] TYPE AND SCREEN STAT 02/10/2025 3:28 AM [employer] PROTIME-INR STAT 02/10/2025 3:28 AM [employer] APTT STAT 02/10/2025 3:28 AM [employer] XR FINGER 2ND INDEX LEFT ED 02/09/2025 11:20 PM [employer] DIFFERENTIAL AUTO STAT 02/09/2025 10: 23 PM [employer] SEPSIS LACTATE WITH REFLEX STAT 02/09/2025 10:23 PM [employer] CBC WITH AUTO DIFFERENTIAL STAT 02/09/2025 10:23 PM [employer] EGFR STAT 02/09/2025 10:08 PM [employer] COMPREHENSIVE METABOLIC PANEL STAT 02/09/2025 10:08 PM [employer] DIFFERENTIAL AUTO Routine 01/11/2025 10: 13 AM CDT Low hemoglobin CBC WITH AUTO DIFFERENTIAL Routine 01/11/2025 10:13 AM CDT Low hemoglobin IRON PROFILE W/ IBC Routine 01/11/2025 1 0:13 AM CDT Low hemoglobin SCREENING MAMMOGRAM BILATERAL W BJ Schedule Routine, Read Routine (OP Routine) 12/14/2024 1:17 PM CDT Encounter for screening mammogram for malignant neoplasm of breast DIFFERENTIAL AUTO Routine 12/14/2024 11: 45 AM CDT Low hemoglobin CBC WITH AUTO DIFFERENTIAL Routine 12/14/2024 11:45 AM CDT Low hemoglobin from Last 3 Months Results * eGFR (02/15/2025 5:28 AM [employer]) eGFR 90 >=60 mL/min/1. 73 m2 Comment: Interpretive Data Reference Interval Normal >/= 90 mL/min/1.73m2 Mildly decreased* 60 - 89 mL/min/1.73m2 Mildly to moderately decreased 45 - 59 mL/min/1.73m2 Moderately to severely decreased 30 - 44 mL/min/1.73m2 Severely decreased 15 - 29 mL/min/1.73m2 Kidney Failure < 15 mL/min/1.73m2 *Relative to young adult level Estimated glomerular filtration rate is determined by the 2020 CKD-EPI equation recommended by the National Kidney Foundation (A Unifying Approach to GFR Estimation: Recommendations of the NKF-ASK Task Force on Reassessing the Inclusion of Race in Diagnosing Kidney Disease, JASN 2020). The CKD-EPI equation should not be used for patients with unstable renal function and has not been validated in children and those over 70. Current interpretive data was last reviewed 2021. Blood 02/15/2025 5:28 AM [employer] 02/15/2025 5:56 AM [employer] us Amanda Marquis MD LAB BLOOD ORDERABL ES Final Result [facility] Department of Laboratories [place], [place] [id number] * (ABNORMAL) CBC without differential (02/15/2025 5:28 AM [employer]) [facility] WBC 6.18 3.80 - 9.90 K/cumm Hgb 11.5(L) 11.9 - 15.5 g/dL [facility] Hct 35.0(L) 35.6 - 45.5 % [facility] Plt 292 150 - 400 K/cumm [facility] MPV 9.8 9.1 - 12.3 fL [facility] RBC 3.95 3.90 - 5.20 M/cumm [facility] MCV 88.6 81.3 - 96.4 fL [facility] MCH 29.1 27.1 - 33.3 pg [facility] MCHC 32.9 32.3 - 35.7 g/dL [facility] RDW CV 17.7(H) 11.1 - 14.9 % [facility] RDW SD 57.5(H) 35.7 - 48.1 fL [facility] NRBC abs 0.00 0.00 - 0.01 K/cumm [facility] Blood 02/15/2025 5:28 AM [employer] 02/15/2025 5:56 AM [employer] Amanda Marquis MD LAB BLOOD ORDERABL ES Final Result [facility] Department [place] [address] * Basic metabolic panel (02/15/2025 5:28 AM [employer]) [facility] Sodium 140 135 - 145 mmol/L Potassium, pl 3.9 3.3 - 4.9 mmol/L [facility] Chloride 105 97 - 110 mmol/L [facility] CO2 22 22 - 32 mmol/L [facility] Anion gap 13 2 - 15 mmol/L [facility] BUN 19 6 - 25 mg/dL [facility] Creatinine 0.60 0.60 - 1.10 mg/dL [facility] Glucose 93 70 - 199 mg/dL [facility] Comment: Interpretive Data Fasting glucose >/= 126 mg/dl is diagnostic for diabetes. Fasting is defined as no caloric intake for at least 8 hours. Fasting glucose between 100 mg/dl to 125 mg/dl is diagnostic of prediabetes. In a patient with classic symptoms of hyperglycemia or hyperglycemic crisis, a random glucose >/= 200 mg/dl is diagnostic for diabetes. In the absence of unequivocal hyperglycemia, results should be confirmed by repeat testing. The classification and Diagnosis of Diabetes Diabetes Care 2021; 46: S19-S40. Current interpretive data was last revised 2022. Calcium 9.6 8.5 - 10.3 mg/dL [facility] Blood 02/15/2025 5:28 AM [employer] 02/15/2025 5:56 AM [employer] Amanda Marquis MD LAB BLOOD ORDERABL ES Final Result Performing Organization Address [facility] Co de Phone Number [facility] [place] [address] * (ABNORMAL) Vancomycin level trough Draw trough 30 minutes prior to 3rd dose. (02/14/2025 8:03 AM [employer]) [facility] Vancomycin trough 6.7(L) 10.0 - 20.0 mcg/mL Blood 02/14/2025 8:03 AM [employer] 02/14/2025 8:16 AM [employer] Narrative [facility] - 02/14/2025 8:44 AM [employer] Draw trough 30 minutes prior to 3rd dose. us Billie Morin MD LAB BLOOD ORDERABLES Final Result Performing Organization Address [facility]/ZIP Co de Phone Number [facility] Department [place] [address] * eGFR (02/14/2025 5:42 AM [employer]) [facility] eGFR 89 >=60 mL/min/1. 73 m2 Comment: Interpretive Data Reference Interval Normal >/= 90 mL/min/1.73m2 Mildly decreased* 60 - 89 mL/min/1.73m2 Mildly to moderately decreased 45 - 59 mL/min/1.73m2 Moderately to severely decreased 30 - 44 mL/min/1.73m2 Severely decreased 15 - 29 mL/min/1.73m2 Kidney Failure < 15 mL/min/1.73m2 *Relative to young adult level Estimated glomerular filtration rate is determined by the 2020 CKD-EPI equation recommended by the National Kidney Foundation (A Unifying Approach to GFR Estimation: Recommendations of the NKF-ASK Task Force on Reassessing the Inclusion of Race in Diagnosing Kidney Disease, JASN 202). The CKD-EPI equation should not be used for patients with unstable renal function and has not been validated in children and those over 70. Current interpretive data was last reviewed 2021. Blood 02/14/2025 5:42 AM [employer] 02/14/2025 6:23 AM [employer] us Amanda Marquis MD LAB BLOOD ORDERABL ES Final Result [facility] Department [place] [address] * (ABNORMAL) CBC without differential (02/14/2025 5:42 AM [employer]) WBC 6.77 3.80 - 9.90 K/cumm Hgb 11.9 11.9 - 15.5 g/dL [facility] Hct 36.0 35.6 - 45.5 % [facility] Plt 289 150 - 400 K/cumm [facility] MPV 9.9 9.1 - 12.3 fL [facility] RBC 4.08 3.90 - 5.20 M/cumm [facility] MCV 88.2 81.3 - 96.4 fL [facility] MCH 29.2 27.1 - 33.3 pg [facility] MCHC 33.1 32.3 - 35.7 g/dL [facility] RDW CV 18.0(H) 11.1 - 14.9 % [facility] RDW SD 58.4(H) 35.7 - 48.1 fL [facility] NRBC abs 0.00 0.00 - 0.01 K/cumm [facility] Blood 02/14/2025 5:42 AM [employer] 02/14/2025 6:23 AM [employer] Amanda Marquis MD LAB BLOOD ORDERABL ES Final Result Performing Organization Address [facility] Co de Phone Number [facility] Department [place] [address] * Basic metabolic panel (02/14/2025 5:42 AM [employer]) [facility] Sodium 141 135 - 145 mmol/L Potassium, pl 4.3 3.3 - 4.9 mmol/L [facility] Chloride 106 97 - 110 mmol/L [facility] CO2 24 22 - 32 mmol/L [facility] Anion gap 11 2 - 15 mmol/L [facility] BUN 18 6 - 25 mg/dL [facility] Creatinine 0.62 0.60 - 1.10 mg/dL [facility] Glucose 91 70 - 199 mg/dL [facility] Comment: Interpretive Data Fasting glucose >/= 126 mg/dl is diagnostic for diabetes. Fasting is defined as no caloric intake for at least 8 hours. Fasting glucose between 100 mg/dl to 125 mg/dl is diagnostic of prediabetes. In a patient with classic symptoms of hyperglycemia or hyperglycemic crisis, a random glucose >/= 200 mg/dl is diagnostic for diabetes. In the absence of unequivocal hyperglycemia, results should be confirmed by repeat testing. The classification and Diagnosis of Diabetes Diabetes Care 2021; 46: S19-S40. Current interpretive data was last revised 2022. Calcium 9.4 8.5 - 10.3 mg/dL [facility] Blood 02/14/2025 5:42 AM [employer] 02/14/2025 6:23 AM [employer] Amanda Marquis MD LAB BLOOD ORDERABL ES Final Result Performing Organization Address [facility] Co de Phone Number [facility] Department [place] [address] * MRI Hand Left W WO Contrast (02/13/2025 7:53 PM [employer]) Anatomical Region Laterality Modality Upper Extremities Left Magnetic Reson ance 02/14/2025 12:4 7 PM [employer] Impressions 02/14/2025 2:18 PM [employer] Left index finger cellulitis, without underlying organizing fluid collection or osteomyelitis. Dictated by: Brian Norton MD The radiology attending physician has personally reviewed this study, and had reviewed and/or edited this written report and agrees with it. Electronically signed by: David Urena MD Narrative 02/14/2025 2:18 PM [employer] EXAMINATION: MRI HAND LEFT W WO CONTRAST HISTORY: Left hand cellulitis TECHNIQUE: Multiplanar multisequence magnetic resonance imaging of the left hand was performed before and after the uneventful administration of 10 mL gadoterate meglumine intravenous contrast. FINDINGS: Comparison is made with imaging dated 02/01/2025. There is soft tissue edema and enhancement throughout the left second digit, extending to the distal aspect of the finger, without underlying organizing fluid collection. There is no abnormal osseous enhancement, or evidence of osteomyelitis. There is minimal circumferential edema and enhancement surrounding the flexor tendon at the mid proximal phalanx. This is favored to be reactive. There is no evidence of tenosynovitis extending along the length of the flexor tendon. A T2 hyperintense, peripherally enhancing nodule superficial to the flexor tendons, just distal to the carpal tunnel measuring 1 cm in greatest craniocaudal dimension and 4.5 mm in greatest transverse dimension is favored to represent a ganglion cyst. There is no acute fracture. Mild soft tissue edema and skin thickening is seen along the dorsal aspect of the proximal second and third fingers. There is no abnormal muscle enhancement. The intrinsic muscles of the hand are normal. There is polyarticular joint space loss, most notably at the third through fifth distal interphalangeal joints, without evidence of synovitis, or abnormal enhancement favored represent sequela of osteoarthritis. Changes of prior trapeziectomy noted. Procedure Note David Urena MD - 02/14/2025 EXAMINATION: MRI HAND LEFT W WO CONTRAST HISTORY: Left hand cellulitis TECHNIQUE: Multiplanar multisequence magnetic resonance imaging of the left hand was performed before and after the uneventful administration of 10 mL gadoterate meglumine intravenous contrast. FINDINGS: Comparison is made with imaging dated 02/01/2025. There is soft tissue edema and enhancement throughout the left second digit, extending to the distal aspect of the finger, without underlying organizing fluid collection. There is no abnormal osseous enhancement, or evidence of osteomyelitis. There is minimal circumferential edema and enhancement surrounding the flexor tendon at the mid proximal phalanx. This is favored to be reactive. There is no evidence of tenosynovitis extending along the length of the flexor tendon. A T2 hyperintense, peripherally enhancing nodule superficial to the flexor tendons, just distal to the carpal tunnel measuring 1 cm in greatest craniocaudal dimension and 4.5 mm in greatest transverse dimension is favored to represent a ganglion cyst. There is no acute fracture. Mild soft tissue edema and skin thickening is seen along the dorsal aspect of the proximal second and third fingers. There is no abnormal muscle enhancement. The intrinsic muscles of the hand are normal. There is polyarticular joint space loss, most notably at the third through fifth distal interphalangeal joints, without evidence of synovitis, or abnormal enhancement favored represent sequela of osteoarthritis. Changes of prior trapeziectomy noted. IMPRESSION: Left index finger cellulitis, without underlying organizing fluid collection or osteomyelitis. Dictated by: Brian Norton MD The radiology attending physician has personally reviewed this study, and had reviewed and/or edited this written report and agrees with it. Electronically signed by: David Urena MD Amanda Marquis MD IMG MRI PROCEDURES Final Result * eGFR (02/13/2025 6:50 AM [employer]) eGFR >90 >=60 mL/min/1. 73 m2 Comment: Interpretive Data Reference Interval Normal >/= 90 mL/min/1.73m2 Mildly decreased* 60 - 89 mL/min/1.73m2 Mildly to moderately decreased 45 - 59 mL/min/1.73m2 Moderately to severely decreased 30 - 44 mL/min/1.73m2 Severely decreased 15 - 29 mL/min/1.73m2 Kidney Failure < 15 mL/min/1.73m2 *Relative to young adult level Estimated glomerular filtration rate is determined by the 2020 CKD-EPI equation recommended by the National Kidney Foundation (A Unifying Approach to GFR Estimation: Recommendations of the NKF-ASK Task Force on Reassessing the Inclusion of Race in Diagnosing Kidney Disease, JASN 2020). The CKD-EPI equation should not be used for patients with unstable renal function and has not been validated in children and those over 70. Current interpretive data was last reviewed 2021. Blood 02/13/2025 6:50 AM [employer] 02/13/2025 7:48 AM [employer] Amanda Marquis MD LAB BLOOD ORDERABL ES Final Result Performing Organization Address City/[facility]/ZIP Co de Phone Number [facility] Department [place] [address] * (ABNORMAL) CBC without differential (02/13/2025 6:50 AM [employer]) WBC 6.30 3.80 - 9.90 K/cumm Hgb 12.2 11.9 - 15.5 g/dL [facility] Hct 36.5 35.6 - 45.5 % [facility] Plt 273 150 - 400 K/cumm [facility] MPV 9.8 9.1 - 12.3 fL [facility] RBC 4.17 3.90 - 5.20 M/cumm [facility] MCV 87.5 81.3 - 96.4 fL [facility] MCH 29.3 27.1 - 33.3 pg [facility] MCHC 33.4 32.3 - 35.7 g/dL [facility] RDW CV 18.6(H) 11.1 - 14.9 % [facility] RDW SD 59.4(H) 35.7 - 48.1 fL [facility] NRBC abs 0.00 0.00 - 0.01 K/cumm [facility] Blood 02/13/2025 6:50 AM [employer] 02/13/2025 7:09 AM [employer] Amanda Marquis MD LAB BLOOD ORDERABL ES Final Result [facility] Department [place] [address] * (ABNORMAL) Basic metabolic panel (02/13/2025 6:50 AM [employer]) Sodium 139 135 - 145 mmol/L Potassium, pl 4.2 3.3 - 4.9 mmol/L [facility] Chloride 104 97 - 110 mmol/L [facility] CO2 25 22 - 32 mmol/L [facility] Anion gap 10 2 - 15 mmol/L [facility] BUN 16 6 - 25 mg/dL [facility] Creatinine 0.57(L) 0.60 - 1.10 mg/dL [facility] Glucose 88 70 - 199 mg/dL [facility] Comment: Interpretive Data Fasting glucose >/= 126 mg/dl is diagnostic for diabetes. Fasting is defined as no caloric intake for at least 8 hours. Fasting glucose between 100 mg/dl to 125 mg/dl is diagnostic of prediabetes. In a patient with classic symptoms of hyperglycemia or hyperglycemic crisis, a random glucose >/= 200 mg/dl is diagnostic for diabetes. In the absence of unequivocal hyperglycemia, results should be confirmed by repeat testing. The classification and Diagnosis of Diabetes Diabetes Care 2021; 46: S19-S40. Current interpretive data was last revised 2022. Calcium 9.3 8.5 - 10.3 mg/dL [facility] Blood 02/13/2025 6:50 AM [employer] 02/13/2025 7:09 AM [employer] Amanda Marquis MD LAB BLOOD ORDERABL ES Final Result Performing Organization Address [facility] Co de Phone Number [facility] Department [place] [address] * Erythrocyte sedimentation rate (02/12/2025 6:20 AM [employer]) Erythrocyte sedimentation rate 29 1 - 30 mm/hr Blood 02/12/2025 6:20 AM [employer] 02/12/2025 6:46 AM [employer] Result [facility] Art Lindsay MD LAB BLOOD ORDERABLES Final Result [facility] [place] [address] * (ABNORMAL) CRP (acute phase) (02/12/2025 6:20 AM [employer]) CRP 13.5(H) <=10.0 mg/L Blood 02/12/2025 6:20 AM [employer] 02/12/2025 6:46 AM [employer] Result [facility] Art Lindsay MD LAB BLOOD ORDERABLES Final Result Performing Organization Address [facility] Co de Phone Number [facility] [place] [address] * eGFR (02/11/2025 5:23 AM [employer]) eGFR 83 >=60 mL/min/1. 73 m2 Comment: Interpretive Data Reference Interval Normal >/= 90 mL/min/1.73m2 Mildly decreased* 60 - 89 mL/min/1.73m2 Mildly to moderately decreased 45 - 59 mL/min/1.73m2 Moderately to severely decreased 30 - 44 mL/min/1.73m2 Severely decreased 15 - 29 mL/min/1.73m2 Kidney Failure < 15 mL/min/1.73m2 *Relative to young adult level Estimated glomerular filtration rate is determined by the 2020 CKD-EPI equation recommended by the National Kidney Foundation (A Unifying Approach to GFR Estimation: Recommendations of the NKF-ASK Task Force on Reassessing the Inclusion of Race in Diagnosing Kidney Disease, JASN 2020). The CKD-EPI equation should not be used for patients with unstable renal function and has not been validated in children and those over 70. Current interpretive data was last reviewed 2021. Blood 02/11/2025 5:23 AM [employer] 02/11/2025 5:58 AM [employer] us Allison Page MD LAB BLOOD ORDERABLES Nadia farr Result [facility] Department [place] [address] * (ABNORMAL) Differential, auto (02/11/2025 5:23 AM [employer]) Neutrophil abs 5.18 1.50 - 6.50 K/cumm Imm gran abs 0.02 0.00 - 0.10 K/cumm [facility] Lymphocyte abs 1.60 0.80 - 3.30 K/cumm [facility] Monocyte abs 0.87(H) 0.20 - 0.80 K/cumm [facility] Eosinophil abs 0.09 0.00 - 0.50 K/cumm [facility] Basophil abs 0.09 0.00 - 0.10 K/cumm [facility] Neutrophil pct 66.0 % [facility] Comment: Interpretive Data Percent cell count reference ranges are not reported, since discordance with absolute values may lead to misinterpretation of CBC data. Current Interpretive Data was last revised on 2017. Imm gran pct 0.3 % [facility] Comment: Interpretive Data Percent cell count reference ranges are not reported, since discordance with absolute values may lead to misinterpretation of CBC data. Current Interpretive Data was last revised on 2017. Lymphocyte pct 20.4 % [facility] Comment: Interpretive Data Percent cell count reference ranges are not reported, since discordance with absolute values may lead to misinterpretation of CBC data. Current Interpretive Data was last revised on 2017. Monocyte pct 11.1 % [facility] Comment: Interpretive Data Percent cell count reference ranges are not reported, since discordance with absolute values may lead to misinterpretation of CBC data. Current Interpretive Data was last revised on 2017. Eosinophil pct 1.1 % [facility] Comment: Interpretive Data Percent cell count reference ranges are not reported, since discordance with absolute values may lead to misinterpretation of CBC data. Current Interpretive Data was last revised on 2017. Basophil pct 1.1 % [facility] Comment: Interpretive Data Percent cell count reference ranges are not reported, since discordance with absolute values may lead to misinterpretation of CBC data. Current Interpretive Data was last revised on 2017. Blood 02/11/2025 5:23 AM [employer] 02/11/2025 5:57 AM [employer] Allison Page MD LAB BLOOD ORDERABLES Nadia l Result Performing Organization Address [facility]/ZIP Co de Phone Number [facility] [place] [address] * (ABNORMAL) CBC with auto differential (02/11/2025 5:23 AM [employer]) WBC 7.85 3.80 - 9.90 K/cumm Hgb 11.0(L) 11.9 - 15.5 g/dL [facility] Hct 32.5(L) 35.6 - 45.5 % [facility] Plt 242 150 - 400 K/cumm [facility] MPV 10.1 9.1 - 12.3 fL [facility] RBC 3.66(L) 3.90 - 5.20 M/cumm [facility] MCV 88.8 81.3 - 96.4 fL [facility] MCH 30.1 27.1 - 33.3 pg [facility] MCHC 33.8 32.3 - 35.7 g/dL [facility] RDW CV 19.5(H) 11.1 - 14.9 % [facility] RDW SD 62.4(H) 35.7 - 48.1 fL [facility] NRBC abs 0.00 0.00 - 0.01 K/cumm [facility] Blood 02/11/2025 5:23 AM [employer] 02/11/2025 5:57 AM [employer] Allison Page MD LAB BLOOD ORDERABLES Nadia l Result Performing Organization Address City/[facility]/ZIP Co de Phone Number [facility] [place] [address] * Vancomycin level random (02/11/2025 5:23 AM [employer]) Vancomycin random 5.1 mcg/mL Comment: Interpretive Data No reference ranges have been established for random drug levels. Current Interpretive Data was last revised on 2020. Blood 02/11/2025 5:23 AM [employer] 02/11/2025 5:50 AM [employer] Johnathon Bonner MD LAB BLOOD ORDERABLES Nadia l Result [facility] Department [place] [address] * Comprehensive metabolic panel (02/11/2025 5:23 AM [employer]) Sodium 141 135 - 145 mmol/L Potassium, pl 3.7 3.3 - 4.9 mmol/L [facility] Chloride 106 97 - 110 mmol/L [facility] CO2 24 22 - 32 mmol/L [facility] Anion gap 11 2 - 15 mmol/L [facility] BUN 16 6 - 25 mg/dL [facility] Creatinine 0.73 0.60 - 1.10 mg/dL [facility] Glucose 98 70 - 199 mg/dL [facility] Comment: Interpretive Data Fasting glucose >/= 126 mg/dl is diagnostic for diabetes. Fasting is defined as no caloric intake for at least 8 hours. Fasting glucose between 100 mg/dl to 125 mg/dl is diagnostic of prediabetes. In a patient with classic symptoms of hyperglycemia or hyperglycemic crisis, a random glucose >/= 200 mg/dl is diagnostic for diabetes. In the absence of unequivocal hyperglycemia, results should be confirmed by repeat testing. The classification and Diagnosis of Diabetes Diabetes Care 202; 46: S19-S40. Current interpretive data was last revised 2022. Calcium 8.9 8.5 - 10.3 mg/dL [facility] Bilirubin, total 0.4 0.1 - 1.2 mg/dL [facility] Protein, pl 6.5 6.5 - 8.5 g/dL [facility] Albumin 3.9 3.5 - 5.0 g/dL [facility] Alk phos 65 40 - 130 Units/L [facility] ALT 24 7 - 45 Units/L [facility] AST 32 10 - 45 Units/L [facility] Blood 02/11/2025 5:23 AM [employer] 02/11/2025 5:50 AM [employer] us Allison Page MD LAB BLOOD ORDERABLES Nadia l Result Performing Organization Address City/[facility]/ZIP Co de Phone Number [facility] Department [place] [address] * eGFR (02/10/2025 6:49 AM [employer]) eGFR 75 >=60 mL/min/1. 73 m2 Comment: Interpretive Data Reference Interval Normal >/= 90 mL/min/1.73m2 Mildly decreased* 60 - 89 mL/min/1.73m2 Mildly to moderately decreased 45 - 59 mL/min/1.73m2 Moderately to severely decreased 30 - 44 mL/min/1.73m2 Severely decreased 15 - 29 mL/min/1.73m2 Kidney Failure < 15 mL/min/1.73m2 *Relative to young adult level Estimated glomerular filtration rate is determined by the 2020 CKD-EPI equation recommended by the National Kidney Foundation (A Unifying Approach to GFR Estimation: Recommendations of the NKF-ASK Task Force on Reassessing the Inclusion of Race in Diagnosing Kidney Disease, JASN 2020). The CKD-EPI equation should not be used for patients with unstable renal function and has not been validated in children and those over 70. Current interpretive data was last reviewed 2021. Blood 02/10/2025 6:49 AM [employer] 02/10/2025 7:39 AM [employer] us Alon Valle MD LAB BLOOD ORDERABLES F inal Result Performing Organization Address [facility]/ZIP Co de Phone Number [facility] Department [place] [address] * Basic metabolic panel (02/10/2025 6:49 AM [employer]) Sodium 142 135 - 145 mmol/L Potassium, pl 4.0 3.3 - 4.9 mmol/L [facility] Chloride 110 97 - 110 mmol/L [facility] CO2 24 22 - 32 mmol/L [facility] Anion gap 8 2 - 15 mmol/L [facility] BUN 18 6 - 25 mg/dL [facility] Creatinine 0.79 0.60 - 1.10 mg/dL [facility] Glucose 88 70 - 199 mg/dL [facility] Comment: Interpretive Data Fasting glucose >/= 126 mg/dl is diagnostic for diabetes. Fasting is defined as no caloric intake for at least 8 hours. Fasting glucose between 100 mg/dl to 125 mg/dl is diagnostic of prediabetes. In a patient with classic symptoms of hyperglycemia or hyperglycemic crisis, a random glucose >/= 200 mg/dl is diagnostic for diabetes. In the absence of unequivocal hyperglycemia, results should be confirmed by repeat testing. The classification and Diagnosis of Diabetes Diabetes Care 2021; 46: S19-S40. Current interpretive data was last revised 2022. Calcium 8.7 8.5 - 10.3 mg/dL [facility] Blood 02/10/2025 6:49 AM [employer] 02/10/2025 7:39 AM [employer] us Alon Valle MD LAB BLOOD ORDERABLES F inal Result Performing Organization Address City/[facility]/ZIP Co de Phone Number [facility] [place] [address] * Check Sample (02/10/2025 4:26 AM [employer]) ABO Rh O Negative [facility] HCLL OTHER 02/10/2025 4:26 AM [employer] 02/10/2025 4:46 AM [employer] us Eamon Ochoa Jr., MD LAB BLOOD ORDERABLES F inal Result Performing Organization Address [facility]/ZIP Co de Phone Number [facility] Department [place] [address] [facility] * aPTT (02/10/2025 3:28 AM [employer]) Pathologist [facility] aPTT 26 26 - 38 sec Comment: Interpretive Data Heparin therapeutic range: 66.0 - 100.0 seconds. Range based on correlation with therapeutic heparin activity range of 0.3 - 0.7 Units/mL. Blood 02/10/2025 3:28 AM [employer] 02/10/2025 3:48 AM [employer] Alon Valle MD LAB BLOOD ORDERABLES F inal Result Performing Organization Address [facility] [place] [address] * Erythrocyte sedimentation rate (02/10/2025 3:28 AM [employer]) Pathologist [facility] Erythrocyte sedimentation rate 19 1 - 30 mm/hr Blood 02/10/2025 3:28 AM [employer] 02/10/2025 3:44 AM [employer] Alon Valle MD LAB BLOOD ORDERABLES F inal Result Performing Organization Address [facility] de Phone Number [facility] [place] [address] * Protime-INR (02/10/2025 3:28 AM [employer]) Pathologist [facility] PT 12.6 10.2 - 13.5 sec INR 1.12 0.90 - 1.20 [facility] Comment: Interpretive data Oral anticoagulant therapeutic ranges: Venous thromboembolism prophylaxis or treatment: 2.0-3.0 CARDIOLOGY Standard range: 2.0-3.0 High-intensity range: 2.5-3.5 Refer to indication-specific guidelines for appropriate target ranges for prosthetic heart valve replacement. Current interpretive data was last revised on 2019. Blood 02/10/2025 3:28 AM [employer] 02/10/2025 3:48 AM [employer] Alon Valle MD LAB BLOOD ORDERABLES F inal Result Performing Organization Address [facility] de Phone Number [facility] [place] [address] * Type and screen (02/10/2025 3:28 AM [employer]) [place], indirect Negative ABO Rh O Negative [facility] Blood 02/10/2025 3:28 AM [employer] 02/10/2025 4:14 AM [employer] Narrative [facility] - 02/10/2025 5:15 AM [employer] Has the patient had Daratumumab or Isatuximab in the past 6 months?->Unknown Alon Valle MD LAB BLOOD BANK TEST OR DERABLES Final Result Performing Organization Address [facility] de Phone Number [facility] [place] [address] * (ABNORMAL) CRP (acute phase) (02/10/2025 3:28 AM [employer]) CRP 11.9(H) <=10.0 mg/L Blood 02/10/2025 3:28 AM [employer] 02/10/2025 3:43 AM [employer] Alon Valle MD LAB BLOOD ORDERABLES F inal Result Performing Organization Address [facility] de Phone Number [facility] [place] [address] * XR Finger 2nd Index Left (02/09/2025 11:20 PM [employer]) Anatomical Region Laterality Modality Upper Extremities, Hand, Fingers Left Computed Radiography 02/09/2025 11:2 4 PM [employer] Impressions 02/09/2025 11:24 PM [employer] 1. Left index digit soft tissue swelling without evidence of gas or foreign body. 2. Osteopenia with polyarticular degenerative change. 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 Electronically signed by: Maurice Ballard M.D. Narrative 02/09/2025 11:24 PM [employer] EXAMINATION: XR FINGER 2ND INDEX LEFT INDICATION: Female, 79 years old, Cellulitis with streaking lymphangitis. Rule out gas formation TECHNIQUE: 3 views COMPARISON(S): None. FINDINGS: Diffuse soft tissue swelling of the and excision. No evident gas or radiopaque foreign body. Diffuse osteopenia without evidence of periostitis. Central erosions of the 3rd and 5th distal interphalangeal joints with complete joint space loss. 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 Procedure Note Maurice Ballard MD - 02/09/2025 EXAMINATION: XR FINGER 2ND INDEX LEFT INDICATION: Female, 79 years old, Cellulitis with streaking lymphangitis. Rule out gas formation TECHNIQUE: 3 views COMPARISON(S): None. FINDINGS: Diffuse soft tissue swelling of the and excision. No evident gas or radiopaque foreign body. Diffuse osteopenia without evidence of periostitis. Central erosions of the 3rd and 5th distal interphalangeal joints with complete joint space loss. 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 IMPRESSION: 1. Left index digit soft tissue swelling without evidence of gas or foreign body. 2. Osteopenia with polyarticular degenerative change. 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 Electronically signed by: Maurice Ballard M.D. Alon Batista Jr., MD IMG XR PROCEDURES Nadia l Result * Sepsis Lactate w/ Reflex (02/09/2025 10:23 PM [employer]) Sepsis Lactate 1.7 0.7 - 2.0 mmol/L Comment:Testing performed by : [facility], [address] [place] [address]., [address] Blood 02/09/2025 10:2 3 PM [employer] 02/09/2025 10:27 PM [employer] Alon Batista Jr., MD LAB BLOOD ORDERABLES F inal Result [facility] [address] [facility] Department [place] [address] * Differential, auto (02/09/2025 10:23 PM [employer]) Neutrophil abs 5.63 1.50 - 6.50 K/cumm Comment:Testing performed by : [address] [address] Imm gran abs 0.02 0.00 - 0.10 K/cumm JAVIER Comment:Testing performed by : [address] [address] Lymphocyte abs 1.34 0.80 - 3.30 K/cumm JAVIER Comment:Testing performed by : [address] [address] Monocyte abs 0.67 0.20 - 0.80 K/cumm JAVIER Comment:Testing performed by : [address] [address] Eosinophil abs 0.06 0.00 - 0.50 K/cumm JAVIER Comment:Testing performed by : [address] [address] Basophil abs 0.07 0.00 - 0.10 K/cumm JAVIER Comment:Testing performed by : [address] [address] Neutrophil pct 72.2 % [facility] Comment: Interpretive Data Percent cell count reference ranges are not reported, since discordance with absolute values may lead to misinterpretation of CBC data. Current Interpretive Data was last revised on 2017. Testing performed by: [address] [address] Imm gran pct 0.3 % J[facility]IER Comment: Interpretive Data Percent cell count reference ranges are not reported, since discordance with absolute values may lead to misinterpretation of CBC data. Current Interpretive Data was last revised on 2017. Testing performed by: [address] [address] Lymphocyte pct 17.2 % J[facility]IER Comment: Interpretive Data Percent cell count reference ranges are not reported, since discordance with absolute values may lead to misinterpretation of CBC data. Current Interpretive Data was last revised on 2017. Testing performed by: [address] [address] Monocyte pct 8.6 % J[facility]IER Comment: Interpretive Data Percent cell count reference ranges are not reported, since discordance with absolute values may lead to misinterpretation of CBC data. Current Interpretive Data was last revised on 2017. Testing performed by: [address] [address] Eosinophil pct 0.8 % J[facility] Comment: Interpretive Data Percent cell count reference ranges are not reported, since discordance with absolute values may lead to misinterpretation of CBC data. Current Interpretive Data was last revised on 2017. Testing performed by: [address] [address] Basophil pct 0.9 % [facility] Comment: Interpretive Data Percent cell count reference ranges are not reported, since discordance with absolute values may lead to misinterpretation of CBC data. Current Interpretive Data was last revised on 2017. Testing performed by: [address] [address] Blood 02/09/2025 10:2 3 PM [employer] 02/09/2025 10:27 PM [employer] Alon Batista Jr., MD LAB BLOOD ORDERABLES F inal Result [facility] [address] [facility] Department of Laboratories [place], [place] [id number] * (ABNORMAL) CBC with auto differential (02/09/2025 10:23 PM [employer]) WBC 7.79 3.80 - 9.90 K/cumm Comment:Testing performed by : [address] [address] Hgb 11.5(L) 11.9 - 15.5 g/dL JAVIER BOTELLO Comment:Testing performed by : [address], [address] Hct 34.8(L) 35.6 - 45.5 % JAVIER Comment:Testing performed by : [address] [address] Plt 270 150 - 400 K/cumm JAVIER Comment:Testing performed by : [address], [address] MPV 10.2 9.1 - 12.3 fL JAVIER Comment:Testing performed by : [address], [address] RBC 3.91 3.90 - 5.20 M/cumm JAVIER Comment:Testing performed by : [address], [address] MCV 89.0 81.3 - 96.4 fL JAVIER Comment:Testing performed by : [address], [address] MCH 29.4 27.1 - 33.3 pg JAVIER Comment:Testing performed by : [address], [address] MCHC 33.0 32.3 - 35.7 g/dL JAVIER Comment:Testing performed by : [address], [address] RDW CV 19.7(H) 11.1 - 14.9 % JAVIER Comment:Testing performed by : [address], [address] RDW SD 62.6(H) 35.7 - 48.1 fL JAVIER Comment:Testing performed by : [address], [address] NRBC abs 0.00 0.00 - 0.01 K/cumm JAVIER Comment:Testing performed by : [address], [address] Blood 02/09/2025 10:2 3 PM [employer] 02/09/2025 10:27 PM [employer] Alon Batista Jr., MD LAB BLOOD ORDERABLES F inal Result Performing Organization Address [facility] de Phone Number [facility] [place] [address] * eGFR (02/09/2025 10:08 PM [employer]) eGFR 69 >=60 mL/min/1. 73 m2 Comment: Interpretive Data Reference Interval Normal >/= 90 mL/min/1.73m2 Mildly decreased* 60 - 89 mL/min/1.73m2 Mildly to moderately decreased 45 - 59 mL/min/1.73m2 Moderately to severely decreased 30 - 44 mL/min/1.73m2 Severely decreased 15 - 29 mL/min/1.73m2 Kidney Failure < 15 mL/min/1.73m2 *Relative to young adult level Estimated glomerular filtration rate is determined by the 2020 CKD-EPI equation recommended by the National Kidney Foundation (A Unifying Approach to GFR Estimation: Recommendations of the NKF-ASK Task Force on Reassessing the Inclusion of Race in Diagnosing Kidney Disease, JASN 2020). The CKD-EPI equation should not be used for patients with unstable renal function and has not been validated in children and those over 70. Current interpretive data was last reviewed 2021. Testing performed by: [address] [address] Blood 02/09/2025 10:0 8 PM [employer] 02/09/2025 10:13 PM [employer] Alon Batista Jr., MD LAB BLOOD ORDERABLES F inal Result Performing Organization Address [facility] Co de Phone Number J[facility]IER [address] [facility] [place] [address] * Comprehensive metabolic panel (02/09/2025 10:08 PM [employer]) Pathologist [facility] [place] Sodium 140 135 - 145 mmol/L Comment:Testing performed by : [address] [address] Potassium, pl 3.5 3.3 - 4.9 mmol/L JAVIER Comment:Testing performed by : [address] [place]., [address] Chloride 104 97 - 110 mmol/L [facility] Comment:Testing performed by : [address], [place]., [address] CO2 26 22 - 32 mmol/L J[facility]IER Comment:Testing performed by : [address], [place]., [address] Anion gap 10 2 - 15 mmol/L [facility] Comment:Testing performed by : [address], [place]., [address] BUN 20 6 - 25 mg/dL [facility] Comment:Testing performed by : [address], [place]., [address] Creatinine 0.85 0.60 - 1.10 mg/dL [facility] Comment:Testing performed by : [address], [place]., [address] Glucose 142 70 - 199 mg/dL [facility] Comment: Interpretive Data Fasting glucose >/= 126 mg/dl is diagnostic for diabetes. Fasting is defined as no caloric intake for at least 8 hours. Fasting glucose between 100 mg/dl to 125 mg/dl is diagnostic of prediabetes. In a patient with classic symptoms of hyperglycemia or hyperglycemic crisis, a random glucose >/= 200 mg/dl is diagnostic for diabetes. In the absence of unequivocal hyperglycemia, results should be confirmed by repeat testing. The classification and Diagnosis of Diabetes Diabetes Care 202; 46: S19-S40. Current interpretive data was last revised 2022. Testing performed by: [address] [address] Calcium 10.3 8.5 - 10.3 mg/dL [facility] Comment:Testing performed by : [address] [address] Bilirubin, total 0.7 0.1 - 1.2 mg/dL [facility] Comment:Testing performed by : [address] [address] Protein, pl 6.9 6.5 - 8.5 g/dL [facility] Comment:Testing performed by : [address] [address] Albumin 4.5 3.5 - 5.0 g/dL J[facility] Comment:Testing performed by : [address] [address] Alk phos 75 40 - 130 Units/L [facility] Comment:Testing performed by : [address] [address] ALT 29 7 - 45 Units/L [facility] Comment:Testing performed by : [address] [address] AST 36 10 - 45 Units/L [facility] Comment:Testing performed by : [address] [address] Blood 02/09/2025 10:0 8 PM [employer] 02/09/2025 10:13 PM [employer] us Alon Batista Jr., MD LAB BLOOD ORDERABLES F inal Result [place] [address] [facility] Department [place] [address] * Differential, auto (01/11/2025 10:13 AM CDT) Neutrophil abs 4.20 1.50 - 6.50 K/cumm Comment:Testing performed by : [address] [address] Imm gran abs 0.02 0.00 - 0.10 K/cumm JAVIER Comment:Testing performed by : [address] [address] Lymphocyte abs 1.61 0.80 - 3.30 K/cumm JAVIER Comment:Testing performed by : [address] [address] Monocyte abs 0.60 0.20 - 0.80 K/cumm JAVIER Comment:Testing performed by : [address] [address] Eosinophil abs 0.10 0.00 - 0.50 K/cumm JAVIER Comment:Testing performed by : [address] [address] Basophil abs 0.08 0.00 - 0.10 K/cumm JAVIER Comment:Testing performed by : [address] [address] Neutrophil pct 63.5 % [facility] Comment: Interpretive Data Percent cell count reference ranges are not reported, since discordance with absolute values may lead to misinterpretation of CBC data. Current Interpretive Data was last revised on 2017. Testing performed by: [address] [address] Imm gran pct 0.3 % [facility] Comment: Interpretive Data Percent cell count reference ranges are not reported, since discordance with absolute values may lead to misinterpretation of CBC data. Current Interpretive Data was last revised on 2017. Testing performed by: [address] [address] Lymphocyte pct 24.4 % [facility] Comment: Interpretive Data Percent cell count reference ranges are not reported, since discordance with absolute values may lead to misinterpretation of CBC data. Current Interpretive Data was last revised on 2017. Testing performed by: [address] [address] Monocyte pct 9.1 % [facility] Comment: Interpretive Data Percent cell count reference ranges are not reported, since discordance with absolute values may lead to misinterpretation of CBC data. Current Interpretive Data was last revised on 2017. Testing performed by: [address] [address] Eosinophil pct 1.5 % [facility] Comment: Interpretive Data Percent cell count reference ranges are not reported, since discordance with absolute values may lead to misinterpretation of CBC data. Current Interpretive Data was last revised on 2017. Testing performed by: [address] [address] Basophil pct 1.2 % [facility] Comment: Interpretive Data Percent cell count reference ranges are not reported, since discordance with absolute values may lead to misinterpretation of CBC data. Current Interpretive Data was last revised on 2017. Testing performed by: [address] [address] Blood 01/11/2025 10:1 3 AM CDT 01/11/2025 10:53 AM CDT [facility] Magnus DO LAB BLOOD ORDERABLES F inal Result [facility] [address] [facility] Department [place] [address] * (ABNORMAL) Iron profile w/ IBC (01/11/2025 10:13 AM CDT) Pathologist [facility] [place] Iron 59 35 - 145 mcg/dL Comment:Testing performed by : [address] [address] TIBC 392 250 - 400 mcg/dL J[facility]IER BOTELLO Comment:Testing performed by : [address] [address] Transferrin saturation 15(L) 20 - 50 % [facility] BOTELLO Comment:Testing performed by : [address] [address] Blood 01/11/2025 10:1 3 AM CDT 01/11/2025 12:40 PM CDT [facility] Lyle DO LAB BLOOD ORDERABLES F inal Result J[facility] [address] [facility] Department [place] [address] * (ABNORMAL) CBC with auto differential (01/11/2025 10:13 AM CDT) [facility] WBC 6.61 3.80 - 9.90 K/cumm Comment:Testing performed by : [address] [address] Hgb 11.6(L) 11.9 - 15.5 g/dL J[facility]IER BOTELLO Comment:Testing performed by : [address] [address] Hct 36.7 35.6 - 45.5 % [facility] BOTELLO Comment:Testing performed by : [address] [address] Plt 261 150 - 400 K/cumm JAVIER BOTELLO Comment:Testing performed by : [address] [address] MPV 10.2 9.1 - 12.3 fL [facility] BOTELLO Comment:Testing performed by : [address] [address] RBC 4.06 3.90 - 5.20 M/cumm J[facility]IER BOTELLO Comment:Testing performed by : [address] [address] MCV 90.4 81.3 - 96.4 fL J[facility]IER Comment:Testing performed by : [address] [address] MCH 28.6 27.1 - 33.3 pg J[facility]IER BOTELLO Comment:Testing performed by : [address] [address] MCHC 31.6(L) 32.3 - 35.7 g/dL [facility] BOTELLO Comment:Testing performed by : [address], [address] RDW CV 21.2(H) 11.1 - 14.9 % [facility] Comment:Testing performed by : [address] [address] RDW SD 69.0(H) 35.7 - 48.1 fL [facility] BOTELLO Comment:Testing performed by : [address] [address] NRBC abs 0.00 0.00 - 0.01 K/cumm JAVIER Comment:Testing performed by : [address] [address] Blood 01/11/2025 10:1 3 AM CDT 01/11/2025 10:53 AM CDT Saul Agudelo LAB BLOOD ORDERABLES F inal Result [facility] [address] [facility] Department [place] [address] * SCREENING MAMMOGRAM BILATERAL W BJ (12/14/2024 1:17 PM CDT) Anatomical Region Laterality Modality Breast Bilateral Mammography Impressions 12/15/2024 8:53 AM CDT Bilateral No evidence of malignancy in either breast. OVERALL BI-RADS FINAL ASSESSMENT: 1 - Negative RECOMMENDATION: Recommend bilateral annual screening mammography. Decision to continue screening mammography should be made based on clinical factors. Narrative 12/15/2024 8:53 AM CDT EXAMINATION: SCREENING MAMMOGRAM BILATERAL W BJ: 12/14/2024 COMPARISON: Relevant prior studies available at the time of interpretation were reviewed, including the most recent mammogram on: 08/05/2023. TECHNIQUE: Mammography was performed with 2D and 3D digital breast tomosynthesis (DBT) images. CAD was utilized. BREAST PARENCHYMAL COMPOSITION: The breasts are heterogeneously dense, which may obscure small masses. FINDINGS: Bilateral There is no suspicious mass, calcification, or architectural distortion in either breast. Saul Agudelo DO IMG MAMMO PROCEDURES F inal Result * Differential, auto (12/14/2024 11:45 AM CDT) Neutrophil abs 4.35 1.50 - 6.50 K/cumm Comment:Testing performed by : [address] [address] Imm gran abs 0.02 0.00 - 0.10 K/cumm JAVIER Comment:Testing performed by : [address] [address] Lymphocyte abs 1.39 0.80 - 3.30 K/cumm JAVIER Comment:Testing performed by : [address] [address] Monocyte abs 0.50 0.20 - 0.80 K/cumm JAVIER Comment:Testing performed by : [address] [address] Eosinophil abs 0.10 0.00 - 0.50 K/cumm JAVIER Comment:Testing performed by : [address] [address] Basophil abs 0.07 0.00 - 0.10 K/cumm JAVIER Comment:Testing performed by : [address] [address] Neutrophil pct 67.6 % [facility] Comment: Interpretive Data Percent cell count reference ranges are not reported, since discordance with absolute values may lead to misinterpretation of CBC data. Current Interpretive Data was last revised on 2017. Testing performed by: [address] [address] Imm gran pct 0.3 % [facility] Comment: Interpretive Data Percent cell count reference ranges are not reported, since discordance with absolute values may lead to misinterpretation of CBC data. Current Interpretive Data was last revised on 2017. Testing performed by: [address] [address] Lymphocyte pct 21.6 % [facility] Comment: Interpretive Data Percent cell count reference ranges are not reported, since discordance with absolute values may lead to misinterpretation of CBC data. Current Interpretive Data was last revised on 2017. Testing performed by: [address] [address] Monocyte pct 7.8 % [facility] Comment: Interpretive Data Percent cell count reference ranges are not reported, since discordance with absolute values may lead to misinterpretation of CBC data. Current Interpretive Data was last revised on 2017. Testing performed by: [address] [address] Eosinophil pct 1.6 % [facility] Comment: Interpretive Data Percent cell count reference ranges are not reported, since discordance with absolute values may lead to misinterpretation of CBC data. Current Interpretive Data was last revised on 2017. Testing performed by: [address] [address] Basophil pct 1.1 % [facility] Comment: Interpretive Data Percent cell count reference ranges are not reported, since discordance with absolute values may lead to misinterpretation of CBC data. Current Interpretive Data was last revised on 2017. Testing performed by: [address] [address] Blood 12/14/2024 11:4 5 AM CDT 12/14/2024 1:44 PM CDT [facility] ORDER[facility] F inal Result [facility] [address] [facility] Department [place] [address] * (ABNORMAL) CBC with auto differential (12/14/2024 11:45 AM CDT) WBC 6.43 3.80 - 9.90 K/cumm Comment:Testing performed by : [address] [address] Hgb 10.5(L) 11.9 - 15.5 g/dL J[facility] Comment:Testing performed by : [address] [address] Hct 33.6(L) 35.6 - 45.5 % J[facility]IER Comment:Testing performed by : [address] [address] Plt 304 150 - 400 K/cumm JAVIER Comment:Testing performed by : [address] [address] MPV 10.3 9.1 - 12.3 fL J[facility]IER Comment:Testing performed by : [address] [address] RBC 3.95 3.90 - 5.20 M/cumm JAVIER Comment:Testing performed by : [address] [address] MCV 85.1 81.3 - 96.4 fL J[facility]IER Comment:Testing performed by : [address] [address] MCH 26.6(L) 27.1 - 33.3 pg JAVIER Comment:Testing performed by : [address] [address] MCHC 31.3(L) 32.3 - 35.7 g/dL J[facility]IER Comment:Testing performed by : [address] [address] RDW CV 19.1(H) 11.1 - 14.9 % [facility] BOTELLO Comment:Testing performed by : [facility], [address] [place] [address]., [address] RDW SD 57.6(H) 35.7 - 48.1 fL JAVIER BOTELLO Comment:Testing performed by : [facility], [address] [place] [address]., [address] NRBC abs 0.00 0.00 - 0.01 K/cumm JAVIER BOTELLO Comment:Testing performed by : [address] [address] Blood 12/14/2024 11:4 5 AM CDT 12/14/2024 1:44 PM CDT Saul Agudelo DO LAB BLOOD ORDERABLES F inal Result [facility]IER B[facility]LL[facility] [address] [facility] Department [place] [address] from Last 3 Months Insurance [facility] Advance Directives For more information, please contact: [phone] * Full Code (Latest Code Status on File) Date Activated Date Inactivated Comments 02/10/2025 11:47 AM 02/15/2025 5:18 PM Care Teams Percussion Instructor Relationship Specialty Start Date End Date Saul Agudelo DO [address] [place] [address] [phone] PCP - General Family Medicine 11/10/23
== END 2025-03-14 09:59 | disposition home or self-care (01) ==
PROVIDERS: PCP Family Medicine; Visit Provider Orthopaedic Surgery Hand Surgery
DX: M19.041 Primary osteoarthritis, right hand (principal); M19.011 Primary osteoarthritis, right shoulder; M19.012 Primary osteoarthritis, left shoulder
CPT/HCPCS: 73030; 73130